=== PATIENT | female | born 1995 | race Caucasian/White ===

== ENCOUNTER 2018-08-15 10:15 | Outpatient (CLI) | payer OTHER ==
--- NOTE | 2018-08-15 15:18 | Ultrasound Report ---
Reason: ABDOMINAL PAIN,CHRONIC Procedure Date: 08/15/2018 Accession Number: [id number] / [id number] Procedure: US - Abdomen Complete CPT Code: FULL RESULT: EXAM: ABDOMEN ULTRASOUND EXAM DATE: 08/15/2018 11:04 AM. CLINICAL HISTORY: ABDOMINAL PAIN,CHRONIC. COMPARISON: 08/15/2018 11:05 AM. TECHNIQUE: Real-time scanning was performed with static images obtained. FINDINGS: Liver: Unremarkable echotexture. 15.2 cm. Main portal vein flow: Hepatopetal. Gallbladder: No stones, wall thickening, or sonographic Celis's sign. Biliary System: Common bile duct measures 2 mm. No intrahepatic ductal dilatation. Pancreas: Head and body are unremarkable. Distal tail is obscured by overlying bowel gas. Kidneys: Right: 10.4 cm longitudinally. No contour-deforming mass, shadowing stones, or hydronephrosis. Left: 10.5 cm longitudinally. No contour-deforming mass, shadowing stones, or hydronephrosis. Spleen: 8.8 cm Imaged portions of the aorta and IVC are unremarkable. IMPRESSION: No acute sonographic abnormalities. [facility]
== END 2018-08-15 10:16 | disposition home or self-care (01) ==
LOC: DI 10:15
PROVIDERS: ATTEND Family Medicine
DX: R10.9 Unspecified abdominal pain (principal)
CPT/HCPCS: 76700

== ENCOUNTER 2019-04-02 08:00 | Outpatient (CLI) | payer OTHER ==
[2019-04-03 22:26] LABS: TRICHOMONAS VAGINALIS DNA NEGATIVE (NEGATIVE)
== END 2019-04-02 23:59 | disposition home or self-care (01) ==
LOC: LAB.R 08:00
PROVIDERS: ATTEND Obstetrics & Gynecology
DX: Z11.3 Encounter for screening for infections with a predominantly sexual mode of transmission (principal)
CPT/HCPCS: 87491; 87591; 87661

== ENCOUNTER 2020-05-21 07:00 | Outpatient (CLI) | payer OTHER ==
--- NOTE | 2020-05-21 09:03 | XRAY Report ---
PROCEDURE: Knee 4 View BILAT INDICATIONS: BILATERAL KNEE PX TECHNIQUE: 4 views of the bilateral knee(s) were acquired. COMPARISON: None. FINDINGS: Bones: Joint space is maintained. No arthritic changes. No fractures or dislocations. Normal patella r height and position. No suspicious bony lesions. Soft tissues: No joint effusion. No suspicious soft tissue calcifications. IMPRESSION: Normal knee radiographs. Reviewed by: Serge Peters MD on 05/21/2020 9:[address] [facility] Approved by: Serge Peters MD on 05/21/2020 9:01 AM PST Station ID: [id number]
== END 2020-05-21 23:59 | disposition home or self-care (01) ==
LOC: DI.N 07:00
PROVIDERS: ATTEND Physician Assistant
DX: M25.561 Pain in right knee (principal); M25.562 Pain in left knee